=== PATIENT | female | born 1960 | race Two or more races ===

== ENCOUNTER 2022-02-12 06:50 | Emergency (ER) | payer OTHER ==
[~2022-02-12] VITALS: Ht 165.1 cm; Wt 86.2 kg
[2022-02-12] MEDS ORDERED: COZAAR25 MG PO (07:51)
[2022-02-12] MEDS ORDERED: BACLOFEN20 MG PO (07:52)
[2022-02-12] MEDS ORDERED: GRALISE600 MG PO (07:52)
== END 2022-02-12 14:33 | disposition home or self-care (01) ==
LOC: ER 06:50
DX: R10.9 Unspecified abdominal pain (principal); Z88.0 Allergy status to penicillin